=== PATIENT | female | born 1935 | race Two or more races ===

== ENCOUNTER 2019-07-24 13:59 | Emergency (ER) | payer MEDICARE ==
[2019-07-24 14:22] VITALS: BP 104/59
--- NOTE | 2019-07-24 14:47 | UC ---
General HPI - HPI Summary HPI Summary: 84-year-old woman comes in with a chief complaint of low back pain after fall. Earlier today patient was in the bathroom when her son heard her fall. After the fall patient complaint of low back pain. She has pain with ambulation and palpation. Patient reports chronic leg weakness. Denies any abdominal pain. Several days ago she tripped and fell and struck her forehead. She is on the blood thinner L Oquist. She does have a cardiac condition and as a defibrillator in. The family does not believe that it's a pacemaker. No focal weakness or numbness or difficulty with speech or vision noted. Patient denies any headache at this time. Patient has chronic neck pain. No complaint of any neck pain today. No complaint of any other injuries from the fall then the low back pain. - History of Current Complaint Chief Complaint: UCTrauma Stated Complaint: FELL LOWER BACK PAIN Time Seen by Provider: 07/24/19 14:18 Pain Intensity: 7 - Allergy/Home Medications Allergies/Adverse Reactions: Allergies Allergy/AdvReac Type Severity Reaction Status Date / Time No Known Allergies Allergy Verified 07/24/19 14:22 Home Medications: Home Medications Apixaban [Eliquis] 2.5 mg PO DAILY WITH MEAL 07/24/19 [History Confirmed ] Carvedilol [Coreg] 12.5 mg PO DAILY WITH MEAL 07/24/19 [History Confirmed ] Citalopram Hydrobromide [Citalopram HBr] 20 mg PO DAILY WITH MEAL 07/24/19 [ History Confirmed 07/24/19] Digoxin 125 mcg PO DAILY WITH MEAL 07/24/19 [History Confirmed 07/24/19] Docusate Sodium 100 mg PO DAILY WITH MEAL 07/24/19 [History Confirmed 07/24/19] Furosemide 40 mg PO DAILY WITH MEAL 07/24/19 [History Confirmed 07/24/19] Icosapent Ethyl [Vascepa] 1 gm PO DAILY WITH MEAL 07/24/19 [History Confirmed ] Icosapent Ethyl [Vascepa] 2 gm PO BID 07/24/19 [History Confirmed 07/24/19] Ivabradine (NF) [Corlanor (Nf)] 5 mg PO DAILY WITH MEAL 07/24/19 [History Confirmed 07/24/19] Levothyroxine TAB* [Synthroid TAB*] 75 mcg PO DAILY 07/24/19 [History Confirmed 07/24/19] Megestrol TAB* [Megace TAB*] 40 mg PO QID 07/24/19 [History Confirmed 07/24/19] Multivitamin [Multiple Vitamins] 1 tab PO DAILY WITH MEAL 07/24/19 [History Confirmed 07/24/19] Potassium Chlor TAB* [Klor Con ER TAB*] 20 meq PO DAILY 07/24/19 [History Confirmed 07/24/19] Rosuvastatin Calcium 20 mg PO DAILY WITH MEAL 07/24/19 [History Confirmed ] metFORMIN* [Glucophage 500 MG TAB *] 500 mg PO DAILY 07/24/19 [History Confirmed 07/24/19] PMH/Surg Hx/FS Hx/Imm Hx Previously Healthy: Yes - ON ELIQUIS Endocrine History: Diabetes, Hypothyroidism Cardiovascular History: Cardiac Disease, Hypertension, Pacemaker/ICD, Congestive Heart Failure, Atrial Fibrillation - Surgical History Surgical History: Yes - Family History Known Family History: Positive: Non-Contributory - Social History Alcohol Use: Daily Substance Use Type: None Smoking Status (MU): Never Smoked Tobacco Review of Systems All Other Systems Reviewed And Are Negative: Yes Constitutional: Positive: Other - SEE HPI Skin: Positive: Negative Eyes: Positive: Negative ENT: Positive: Negative Respiratory: Positive: Negative Cardiovascular: Positive: Negative Gastrointestinal: Positive: Negative Motor: Positive: Negative Neurovascular: Positive: Negative Musculoskeletal: Positive: Other: - SEE HPI Neurological: Positive: Negative Psychological: Positive: Negative Is Patient Immunocompromised?: No Physical Exam Triage Information Reviewed: Yes Appearance: Well-Appearing, Well-Nourished, Pain Distress - MILD WITH LOW BACK MOVEMENT Vital Signs: Initial Vital Signs Temp 98.3 F 07/24/19 14:12 Pulse 74 07/24/19 14:12 Resp 18 07/24/19 14:12 BP 104/59 07/24/19 14:12 Pulse Ox 95 07/24/19 14:12 Vital Signs Reviewed: Yes Eye Exam: Normal Eyes: Positive: Conjunctiva Clear ENT: Positive: Pharynx normal, TMs normal Neck: Positive: Supple, Nontender Respiratory: Positive: Lungs clear, Normal breath sounds, No respiratory distress Cardiovascular: Positive: Other: - irregularly irregular heart beat Abdomen Description: Positive: Nontender, Soft Musculoskeletal: Positive: Other: - Tender to palpation mid low back and over the sacral area. Neurological: Positive: Alert Psychological: Positive: Age Appropriate Behavior Skin Exam: Normal Diagnostics - EKG Cardiac Rate: NL - AT 1444 Cardiac Rhythm: AFib: Old - 87BPM Ectopy: PVCs Summary of EKG Findings: EKG is 87 beats for minute atrial fibrillation with a PVC and ST depression in V5 and V6. There is no old EKG for comparison. Course/Dx - Course Course Of Treatment: During triage patient's heart rate was 74. However when on the pulse oximeter was reported that it went down into the 30s twice. EKG was 87 beats for minute atrial fibrillation with PVC. There was depressed ST segments in V5 and V6. I do not have an old EKG to compare to. Blood pressure was slightly low although the family does say that her blood pressure often runs low. Given the complexity of the symptoms and an EKG with ST changes that I do not have any comparison for I recommended further evaluation in the emergency department. Family prefers to go by POV. - Diagnoses Provider Diagnosis: Fall, Low back pain, Bradycardia Discharge ED - Sign-Out/Discharge Documenting (check all that apply): Patient Departure All imaging exams completed and their final reports reviewed: No Studies - Discharge Plan Condition: Stable Disposition: HOME-RECOMMEND TO ED Referrals: [facility] [Outside] Additional Instructions: GO DIRECTLY TO THE EMERGENCY DEPARTMENT FOR FURTHER EVALUATION. - Billing Disposition and Condition Condition: STABLE Disposition: Home-Recommend to ED
== END 2019-07-24 15:00 | disposition home health service (06) ==
LOC: UCEAST 13:59
DX: M54.5 Low back pain (principal); R00.1 Bradycardia, unspecified; E11.9 Type 2 diabetes mellitus without complications; E03.9 Hypothyroidism, unspecified; Z79.890 Hormone replacement therapy; Z79.84 Long term (current) use of oral hypoglycemic drugs; Z95.5 Presence of coronary angioplasty implant and graft; Z79.01 Long term (current) use of anticoagulants; W19.XXXA Unspecified fall, initial encounter; Y92.9 Unspecified place or not applicable
CPT/HCPCS: 93005; 99202; G0463

== ENCOUNTER 2019-07-24 15:25 | Observation (INO) | payer MEDICARE ==
--- NOTE | 2019-07-24 16:12 | ED ---
Adult Trauma - HPI Summary HPI Summary: This pt is an 84 y/o female presenting to [facility] referred by [facility] for low back pain after fall yesterday. Son reports yesterday he was helping the patient in the bathroom and helped her brush her teeth. Son stepped out of the bathroom and left the patient by herself to use the toilet. After the son had closed the door he heard a thud and when son went to check the patient she was sitting on the floor with her back towards the door. Patient's son moved the patient forward a little so he can get in to help her up. Per son, patient was sitting on her butt and her feet were flat with her back toward the door. Denies LOC. Pt c/o lower back pain. Son does not know why patient fell. Pt denies any weakness, numbness, headache, chest pain, abd pain. Today pt went to Urgent Care where she was noted to have her heart rate drop to the 30s while on the pulse oximeter. Pt sent by [facility] for further work up. Pt has a defibrillator. Pt is anticoagulated on Eliquis. - History of Current Complaint Chief Complaint: EDBackInjuryPain Stated Complaint: FALL/BACK PAIN PER GRANDSON Time Seen by Provider: 07/24/19 15:49 Hx Obtained From: Patient, Family/Section Crews Activities Clerk - Son Mechanism of Injury: Fall Ambulatory at the Scene: Yes Loss of Consciousness: no loss of consciousness Onset/Duration: Started Days Ago - 1, Still Present Onset of Pain: Days - 1 Current Severity: Moderate Pain Intensity: 5 Pain Scale Used: 0-10 Numeric Location: Back - lower Character: Aching Aggravating Factor(s): Nothing Alleviating Factor(s): Nothing Associated Signs & Symptoms: Negative: Chest Pain, Abdominal Pain, Fever, Loss of Consciousness - Allergy/Home Medications Allergies/Adverse Reactions: Allergies Allergy/AdvReac Type Severity Reaction Status Date / Time No Known Allergies Allergy Verified 07/24/19 14:22 PMH/Surg Hx/FS Hx/Imm Hx Endocrine/Hematology History: Reports: Hx Diabetes, Hx Thyroid Disease Respiratory History: Denies: Hx Asthma GI History: Denies: Hx Ulcer Infectious Disease History: No Infectious Disease History: Denies: Hx Human Immunodeficiency Virus (HIV), Traveled Outside the [place] in Last 30 Days - Family History Known Family History: Positive: Non-Contributory - Social History Alcohol Use: Daily Substance Use Type: Reports: None Smoking Status (MU): Never Smoked Tobacco Review of Systems Negative: Fever Cardiovascular: Other - POSITIVE: arrhythmia Negative: Chest Pain Negative: Abdominal Pain Musculoskeletal: Other - POSITIVE: lower back pain Neurological: Other - NEGATIVE: LOC Negative: Headache, Weakness, Numbness All Other Systems Reviewed And Are Negative: Yes Physical Exam - Summary Physical Exam Summary: Appearance: The patient is well-nourished in no acute distress and in no acute pain. Skin: The skin is warm and dry and skin color reflects adequate perfusion. HEENT: The head is normocephalic and atraumatic. The pupils are equal and reactive. The conjunctivae are clear and without drainage. Nares are patent and without drainage. Mouth reveals moist mucous membranes and the throat is without erythema and exudate. The external ears are intact. The ear canals are patent and without drainage. The tympanic membranes are intact. Neck: the neck is supple with full range of motion and non-tender. There are no carotid bruits. There is no neck vein distension. Respiratory: Chest is non-tender. Lungs are clear to auscultation and breath sounds are symmetrical and equal. Cardiovascular: Heart is regular rate and rhythm. There is no murmur or rub auscultated. There is no peripheral edema and pulses are symmetrical and equal. Abdomen: The abdomen is soft and non-tender. There are normal bowel sounds heard in all four quadrants and there is no organomegaly palpated. Musculoskeletal: There is no back tenderness noted. Extremities are non-tender with full range of motion. There is good capillary refill. There is no peripheral edema or calf tenderness elicited. Neurological: Patient is alert and oriented to person, place and time. The patient has symmetrical motor strength in all four extremities. Psychiatric: The patient has an appropriate affect and does not exhibit any anxiety or depression. Triage Information Reviewed: Yes Vital Signs On Initial Exam: Initial Vitals Temp Pulse Resp BP Pulse Ox 98.6 F 91 18 119/62 98 07/24/19 15:26 07/24/19 15:26 07/24/19 15:26 07/24/19 15:26 07/24/19 15:26 Vital Signs Reviewed: Yes Procedures - Sedation Patient Received Moderate/Deep Sedation with Procedure: No Diagnostics - Vital Signs Vital Signs Temp Pulse Resp BP Pulse Ox 07/24/19 15:26 98.6 F 91 18 119/62 98 - Laboratory Result Diagrams: 07/24/19 16:23 07/24/19 16:23 Lab Statement: Any lab studies that have been ordered have been reviewed, and results considered in the medical decision making process. - CT Lumbar spine CT CT Interpretation Completed By: Radiologist Summary of CT Findings: IMPRESSION: 1. Acute to subacute compression fractures of the superior endplates of the L1 and L4 vertebral bodies with mild retropulsion of fracture fragments into the anterior spinal canal. 2. Severe degenerative disc disease and facet osteoarthritis with changes most prominent at the L3-L4 and L4-L5 levels as described above. Dr. Abraham has reviewed this report. - EKG 16:37 Cardiac Rate: NL - at 78 bpm EKG Rhythm: Atrial Fibrillation Summary of EKG Findings: EKG at 1637 shows afib at a rate of 78 bpm. Adult Trauma Course/Dx - Course Course Of Treatment: Unable to successfully interrogated her device. She was found on CT scan to have new compression fractures with minimal retropulsion. She was kept on the monitor while she was here and did have a short run of V. tach. I spoke with the hospitalist Dr. Galvez who will admit the patient for monitoring and further evaluation. - Diagnoses Provider Diagnoses: V-tach, Compression fracture, Syncope - Physician Notifications Discussed Care Of Patient With: Aye Santo Time Discussed With Above Provider: 19:21 Instructed by Provider To: Other - Discussed case with Dr. Santo, lath tier. [2010] Discussed pt care with Dr. Galvez, hospitalist, who accepted the pt for admission. - Critical Care Time Critical Care Time: 30-74 min Discharge ED - Sign-Out/Discharge Documenting (check all that apply): Patient Departure - Admit to [facility] - Discharge Plan Condition: Stable Disposition: ADMITTED TO [facility] Referrals: [facility] [Outside] - Billing Disposition and Condition Condition: STABLE Disposition: Admitted to [facility] - Attestation Statements Document Initiated by Scribe: Yes Documenting Scribe: Elzbieta Burch Provider For Whom Scribe is Documenting (Include Credential): Kal Abraham MD Scribe Attestation: Elzbieta Wilkerson, scribed for Kal Abraham MD on 07/24/19 at 2135. Scribe Documentation Reviewed: Yes Provider Attestation: The documentation as recorded by the scribe, Elzbieta Burch accurately reflects the service I personally performed and the decisions made by me, Kal Abraham MD Status of Scribe Document: Viewed
[2019-07-24 16:37] LABS: ABS Lymphocytes 0.9 10^3/ul (1.0-4.8); ABS Monocytes 0.6 10^3/ul (0-0.8); ABS Neutrophils 7.4 10^3/ul (1.5-7.7); Eosinophil % 0.4 %; Hematocrit 34 % (35-47); Hemoglobin 11.9 g/dL (12.0-16.0); Lymphocyte % 10.5 %; Mean Corpuscular HGB Conc 35 g/dL (31-36); Mean Corpuscular Hemoglobin 35 pg (27-31); Mean Corpuscular Volume 100 fL (80-97); Mean Platelet Volume 8.4 fL (7.4-10.4); Platelet Count 158 10^3/uL (150-450); Red Blood Count 3.45 10^6 /uL (3.70-4.87); Red Cell Distribution Width 15 % (10-15); White Blood Count 9.1 10^3/uL (3.5-10.8)
[2019-07-24 16:48] LABS: INR 1.69 (0.82-1.09)
[2019-07-24 16:54] LABS: ALT 18 U/L (7-52); AST 21 U/L (13-39); Albumin 4.3 g/dL (3.2-5.2); Albumin/Globulin Ratio 1.3 (1-3); Alkaline Phosphatase 56 U/L (34-104); Anion Gap 10 mmol/L (2-11); BUN/Creatinine Ratio 18.4 (8-20); Blood Urea Nitrogen 14 mg/dL (6-24); CO2 Carbon Dioxide 29 mmol/L (22-32); Calcium 10.4 mg/dL (8.6-10.3); Chloride 95 mmol/L (101-111); EGFR African American 87.5 (>60); EGFR Non-African American 72.3 (>60); Globulin 3.3 g/dL (2-4); Glucose 202 mg/dL (70-100); Magnesium 1.6 mg/dL (1.9-2.7); Potassium 3.6 mmol/L (3.5-5.0); Sodium 134 mmol/L (135-145); Total Protein 7.6 g/dL (6.4-8.9)
[2019-07-24 16:57] LABS: Troponin I 0.01 ng/mL (<0.03)
[2019-07-24 17:10] LABS: TSH (Thyroid Stimulating Horm) 2.13 mcIU/mL (0.34-5.60)
[2019-07-24] MEDS ORDERED: NS 0.9% 1000 ML** 1,000 ML IV ONE (18:55)
[2019-07-24 19:11] LABS: Urine Appearance Clear; Urine Bilirubin Negative (Negative); Urine Blood 1+ (Negative); Urine Color Yellow; Urine Glucose Negative (Negative); Urine Ketones Negative (Negative); Urine Nitrite Negative (Negative); Urine Protein Negative (Negative); Urine Specific Gravity 1.011 (1.010-1.030); Urine Urobilinogen Negative (Negative)
[2019-07-24 19:12] LABS: Urine Bacteria Absent (Absent); Urine Red Blood Cell Trace(0-2/hpf) (Absent); Urine Squamous Epithelial Cell Present (Absent); Urine White Blood Cell Trace(0-5/hpf) (Absent)
[2019-07-24] MEDS ORDERED: Magnesium Sulfate IV* 3 GM in NS 0.9% 100 ML* 100 ML IVPB ONE (20:11)
[2019-07-24] MEDS ORDERED: NS 0.9% 100 ML* 100 ML ONE (20:20)
[2019-07-24] MEDS ORDERED: Ondansetron ODT TAB* 4 MG PO ONE (21:44)
[2019-07-24] MEDS ORDERED: Meclizine TAB* 12.5 MG PO ONE (21:44)
[2019-07-24] MEDS ORDERED: Furosemide TAB* 40 MG PO SCH (22:00)
[2019-07-24 22:10] LABS: Cholesterol 132 mg/dL; HDL Cholesterol 45.3 mg/dL; LDL Cholesterol 35 mg/dL; Triglycerides 257 mg/dL
[2019-07-24 22:11] LABS: % Iron Saturation 19 % (15-55); Iron 72 ug/dL (50-212); Total Iron Binding Capacity 374 mcg/dL (250-450); Transferrin 267 mg/dL (203-362)
[2019-07-24] MEDS ORDERED: Potassium Chlor TAB* 20 MEQ TAB.ER PO ONE (22:18)
[2019-07-24 22:32] LABS: Ferritin 62.4 ng/mL (11-307)
[2019-07-24] MEDS: Carvedilol TAB* 6.25 MG PO SCH (23:38)
[2019-07-24] MEDS: Apixaban* 2.5 MG TAB PO SCH (23:38)
[2019-07-24] MEDS: Atorvastatin* 40 MG TAB PO SCH (23:40)
[2019-07-24] MEDS: Ivabradine (NF) 5 MG TABLET PO SCH (23:48)
[2019-07-25] MEDS ORDERED: Dextrose 50% VIAL 50 ml IV PUSH PRN (00:31)
--- NOTE | 2019-07-25 00:33 | HP ---
HISTORY AND PHYSICAL: DATE OF ADMISSION: 07/24/19 ADMITTING PROVIDER: Sedrick Galvez MD PRIMARY CARE PROVIDER: Dr. Kacie Olvera. OUTPATIENT INDUSTRIAL HYGIENIST: Dr. Gallo [phone] [facility]. CHIEF COMPLAINT: Back pain after a fall, referred for bradycardia. HISTORY OF PRESENT ILLNESS: Mar Rascon is an 84-year-old female with past medical history of what sounds like nonischemic cardiomyopathy with EF improved to reportedly 50% from 25% a few years ago; atrial fibrillation, on Eliquis; hypertension; dementia. She was visiting her son in [place], she is a resident of [facility] in [facility]. On the morning prior to admission, she was in the bathroom and fell landing on her buttocks with her back up against the wall. She is a poor historian and has had a inconsistent history of what happened to her family, but at one point of time, she told her son that she felt like things went dark prior to the fall, later she would say that it happened after. Her son, Pete is in the room and thought that she did not lose consciousness when he opened the door after he heard the thud. She had a 7-8/10 back pain throughout the day, treated with Advil and they sought medical attention at urgent care on the morning of admission. She was noted to have episodes on the pulse oximetry of bradycardias to the 30s and therefore without the access to telemetry, she was referred to [facility]. While on telemetry, she had a 12-beat run of V- tach in the emergency room. The patient had a 10-beat run of V-tach at 20:02 and was referred to the hospitalist service for admission after emergency room doctor talked to team coordinator on-call. Initial workup has included a lumbar spine CT, which demonstrated acute to subacute L1 and L4 compression fractures of the superior end plates with some mild retropulsion of fracture fragments into the anterior spinal canal and severe degenerative disk disease and facet osteoarthritis with changes most prominent at L3-L4 and L4-L5. The patient is a Malay and Indonesian speaker. The medical surrogate, Pete, who is her son, who is at bedside, is translating. She does not know the year at baseline given dementia. She is without complaint. Other than the back pain, she denies any chest pain , shortness of breath, or palpitations. There was an attempt to interrogate the AICD through both [facility] and [facility], but this was successful. She was seen by Dr. Jensen, who placed the AICD or defibrillator about 10 to 12 years ago. She saw him about 3 months ago and thought that the device was working well. She last saw Dr. Gallo 1 month ago and has followup in mid August. PAST MEDICAL HISTORY: What sounds like nonischemic cardiomyopathy and chronic systolic congestive heart failure with last EF approximately 50%, improved from 25%; atrial fibrillation, on Eliquis; hypertension; dementia; diabetes mellitus , non-insulin dependent. MEDICATIONS: Include: 1. Lasix 40 mg p.o. b.i.d. at 0600 and 1100 approximately. 2. Coreg 12.5 mg p.o. b.i.d. 3. Eliquis 2.5 mg p.o. b.i.d. 4. Ivabradine 5 mg p.o. b.i.d. 5. Crestor 20 mg daily. 6. Potassium chloride 20 mEq p.o. b.i.d. 7. Metformin 500 mg daily. 8. Multivitamin 1 tab p.o. daily. 9. Megace 40 mg p.o. four times a day (have not confirmed this frequency yet). 10. Levothyroxine 75 mcg p.o. daily. 11. Vascepa 2 g p.o. b.i.d. 12. Docusate 100 mg p.o. daily. 13. Digoxin 125 mcg p.o. daily. 14. Celexa 20 mg p.o. daily. ALLERGIES: No known drug allergies. FAMILY HISTORY: Father at age 56 of [place]. She has 3 brothers, all of what sounds like congestive heart failure at ages 82, 79, and between 68 and 70. She has 1 sister, who of pancreatic cancer at age 82 and then another sister of age 62 of unknown causes. She had a half brother, who in his 50s, unclear cause. SOCIAL HISTORY: The patient is a never smoker. She is retired floor assembler. She drinks 1 to 2 glasses of wine each day with dinner, has never been heavier drinker than that. No illicit substances history. Medical surrogate is her son , Pete at [phone], other son, Hero, , or the , Uriel. REVIEW OF SYSTEMS: Complete 14-point review of systems is negative except as per HPI. She specifically denies any fevers, chills, nausea, vomiting, diarrhea , constipation, abdominal pain, chest pain, short of breath, coughing, rash, headaches. She does have lower back pain ever since the fall. She is pleasantly demented at baseline. Does not usually know the year, but knows her name. She follows commands. PHYSICAL EXAMINATION GENERAL APPEARANCE: No acute distress. VITAL SIGNS: Temperature 98.6; heart rate between 75 and 107; respiratory rate between 18 and 32; satting 91% to 100% on room air; blood pressure initially 119 /62, currently 148/84. HEENT: Normocephalic, atraumatic. Pupils are equal, round, and reactive to light. Extraocular motions are intact. No scleral icterus. LUNGS: Clear to auscultation bilaterally with no wheezing, rales, or rhonchi. CARDIOVASCULAR: Irregularly irregular. There is a 2/6 systolic ejection murmur across the precordium. No rubs or gallops. ABDOMEN: Soft, nontender, nondistended. No rebound or guarding. EXTREMITIES: Warm and well perfused. No peripheral edema. NEUROLOGIC: Cranial nerves grossly intact. Marketing Designer strength intact bilaterally. Hip flexion intact bilaterally. Sensation intact. SKIN: No lesions. No rashes. DIAGNOSTIC STUDIES/LAB DATA: White count 9.1, hemoglobin 11.9, hematocrit 34, platelets 158. INR 1.69. Sodium 134, potassium 3.6, chloride 95, carbon dioxide 29. BUN 14, creatinine 0.76. Glucose 202, lactic acid 2.5, calcium 10.4, magnesium 1.6. Total bilirubin 1.20, AST 21, ALT 18, alk phos 56. Troponin 0.01. TSH 2.13. Urinalysis: 1+ blood, trace leukocyte esterase, squamous epithelial cells present. Imaging: Lumbar spine CT demonstrated: 1. Acute to subacute compression fractures of the superior end plates of the L1 and L4 vertebral bodies with mild retropulsion of fracture fragments into the anterior spinal canal. 2. Severe degenerative disk disease and facet osteoarthritis with changes most prominent at the L3-L4 and L4-L5 levels as described above. Specifically, there is a moderate broad-based disk bulge associated with posterior end plates spurring and facet osteoarthritis of the L3-L4 giving rise to moderate-to- severe spinal canal narrowing and moderate bilateral neural foraminal narrowing and there is end plate spurring associated with broad-based disk bulge and hypertrophic changes within the facet joints, which comprised of severe spinal canal narrowing at L4-L5 with mild neural foraminal narrowing on the right side and severe neural foraminal narrowing on the left side. EKG from 14:44 at Urgent Care demonstrated atrial fibrillation, PVC, heart rate 87, slight nondiagnostic ST depressions in the V5 and V6. Repeat EKG at 16:37 unchanged except no PVC, QTc was 511, heart rate was 78. ASSESSMENT AND PLAN: 1. Mar Rascon is an 84-year-old female with past medical history of recovering severe systolic congestive heart failure, presumably nonischemic with last EF reportedly about 50%; atrial fibrillation, on Eliquis; hypertension ; non- insulin dependent diabetes mellitus; dementia; who had a fall with possible syncope prior to the fall the day prior to admission. History is unclear. She has had episode of bradycardia at Urgent Care and 10-beat run of ventricular tachycardia in the emergency room. Emergency room provider was contacted. Dr. Santo has recommended observation overnight on telemetry until the pacemaker, which has been attempted to be interrogated by [facility] and [facility] without success, can be fully interrogated. She is otherwise without complaint other than the lower back pain. We will try to get more information about the pacemaker/AICD device once Dr. Gallo's office is open in the morning, also follows up with Dr. Jensen, who placed the device, to see if this is potentially MRI compatible to determine that the compression fractures need further workup. She is a visitor here and could consider followup as an outpatient back home in [facility]. We will get physical therapy to work with her to see if she is ambulatory. She has been using a walker since the fall and possibly before the fall. 2. Possible syncope with episode of ventricular tachycardia. Her electrolytes need replacing. Magnesium was 1.6, we have given her 3 g here, repeat daily. Potassium is 3.6. She is on b.i.d. supplementation, b.i.d. Lasix, replete that above 4, magnesium above 2. I am adding on A1c and lipid panel. 3. She is slightly anemic with macrocytosis. I will add on iron panel, ferritin, and iron sat. We can request her records of PCP, Dr. Kacie Olvera in the morning. She denies any recent blood in bowel movements. 4. For her chronic systolic nonischemic congestive heart failure, continue ivabradine 5 mg p.o. b.i.d., carvedilol 12.5 mg p.o. b.i.d., Lasix 40 mg at 0600 and 1100. She is relatively euvolemic. I am going to add on a BNP. If any evidence of hypoxia, which she has not had, we will get a chest x-ray. We will request the echocardiogram records from the outpatient team coordinator in the morning. 5. Lactic acidosis 2.5. She is without any fevers, leukocytosis, tachycardia. She has had intermittent tachypnea, but looks stable from a respiratory standpoint when I was in the room. It could be secondary to the metformin, which will be held during admission. She is status post 1 L of fluids in the emergency room. Repeat the lactic acid now. It was elevated in the morning. UA without evidence of infection. 6. DVT prophylaxis and paroxysmal atrial fibrillation. We will continue Eliquis 2.5 mg p.o. b.i.d. Continue the carvedilol 12.5 mg p.o. b.i.d. Continue telemetry and electrolytes repletion as above. We will add on digoxin level in the morning. Continue digoxin at home dose for now 0.125 mg p.o. daily. She is a full code. Medical surrogate is her son, Pete; son, Hero; and then , Uriel. She can eat a heart-healthy diet. 7. Hyperlipidemia. Continue her Crestor 20 mg daily. 8. For hypothyroidism, continue levothyroxine 75 mcg daily. Her TSH was within normal limits. [id number] #: [id number] #: [id number] MABLE
--- NOTE | 2019-07-25 00:50 | HP ---
HISTORY AND PHYSICAL: ADDENDUM: DATE OF ADMISSION: 07/24/19 The patient had a 10-beat run of V-tach at 20:02 and was referred to the hospitalist service for admission after emergency room doctor talked to civil engineering assistant on-call. Initial workup has included a lumbar spine CT, which demonstrated acute to subacute L1 and L4 compression fractures of the superior end plates with some mild retropulsion of fracture fragments into the anterior spinal canal and severe degenerative disk disease and facet osteoarthritis with changes most prominent at L3-L4 and L4-L5. The patient is a Guatemalan and Romanian speaker. The medical surrogate, Pete, who is her son, who is at bedside, is translating. She does not know the year at baseline given dementia. She is without complaint. Other than the back pain, she denies any chest pain , shortness of breath, or palpitations. There was an attempt to interrogate the AICD through both [facility] and [facility], but this was successful. She was seen by Dr. Jensen, who placed the AICD or defibrillator about 10 to 12 years ago. She saw him about 3 months ago and thought that the device was working well. She last saw Dr. Gallo 1 month ago and has followup in mid August. PAST MEDICAL HISTORY: What sounds like nonischemic cardiomyopathy and chronic systolic congestive heart failure with last EF approximately 50%, improved from 25%; atrial fibrillation, on Eliquis; hypertension; dementia; diabetes mellitus , non-insulin dependent. MEDICATIONS: Include: 1. Lasix 40 mg p.o. b.i.d. at 0600 and 1100 approximately. 2. Coreg 12.5 mg p.o. b.i.d. 3. Eliquis 2.5 mg p.o. b.i.d. 4. Ivabradine 5 mg p.o. b.i.d. 5. Crestor 20 mg daily. 6. Potassium chloride 20 mEq p.o. b.i.d. 7. Metformin 500 mg daily. 8. Multivitamin 1 tab p.o. daily. 9. Megace 40 mg p.o. four times a day (have not confirmed this frequency yet). 10. Levothyroxine 75 mcg p.o. daily. 11. Vascepa 2 g p.o. b.i.d. 12. Docusate 100 mg p.o. daily. 13. Digoxin 125 mcg p.o. daily. 14. Celexa 20 mg p.o. daily. ALLERGIES: No known drug allergies. FAMILY HISTORY: Father at age 56 of [place]. She has 3 brothers, all of what sounds like congestive heart failure at ages 82, 79, and between 68 and 70. She has 1 sister, who of pancreatic cancer at age 82 and then another sister of age 62 of unknown causes. She had a half brother, who in his 50s, unclear cause. SOCIAL HISTORY: The patient is a never smoker. She is retired floors buffer. She drinks 1 to 2 glasses of wine each day with dinner, has never been heavier drinker than that. No illicit substances history. Medical surrogate is her son , Pete, at [phone], other son, Hero, , or the , Uriel. REVIEW OF SYSTEMS: Complete 14-point review of systems is negative except as per HPI. She specifically denies any fevers, chills, nausea, vomiting, diarrhea , constipation, abdominal pain, chest pain, short of breath, coughing, rash, headaches. She does have lower back pain ever since the fall. She is pleasantly demented at baseline. Does not usually know the year, but knows her name. She follows commands. PHYSICAL EXAMINATION GENERAL APPEARANCE: No acute distress. VITAL SIGNS: Temperature 98.6; heart rate between 75 and 107; respiratory rate between 18 and 32; satting 91% to 100% on room air; blood pressure initially 119 /62, currently 148/84. HEENT: Normocephalic, atraumatic. Pupils are equal, round, and reactive to light. Extraocular motions are intact. No scleral icterus. LUNGS: Clear to auscultation bilaterally with no wheezing, rales, or rhonchi. CARDIOVASCULAR: Irregularly irregular. There is a 2/6 systolic ejection murmur across the precordium. No rubs or gallops. ABDOMEN: Soft, nontender, nondistended. No rebound or guarding. EXTREMITIES: Warm and well perfused. No peripheral edema. NEUROLOGIC: Cranial nerves grossly intact. Damper Worker strength intact bilaterally. Hip flexion intact bilaterally. Sensation intact. SKIN: No lesions. No rashes. DIAGNOSTIC STUDIES/LAB DATA: White count 9.1, hemoglobin 11.9, hematocrit 34, platelets 158. INR 1.69. Sodium 134, potassium 3.6, chloride 95, carbon dioxide 29. BUN 14, creatinine 0.76. Glucose 202, lactic acid 2.5, calcium 10.4, magnesium 1.6. Total bilirubin 1.20, AST 21, ALT 18, alk phos 56. Troponin 0.01. TSH 2.13. Urinalysis: 1+ blood, trace leukocyte esterase, squamous epithelial cells present. Imaging: Lumbar spine CT demonstrated: 1. Acute to subacute compression fractures of the superior end plates of the L1 and L4 vertebral bodies with mild retropulsion of fracture fragments into the anterior spinal canal. 2. Severe degenerative disk disease and facet osteoarthritis with changes most prominent at the L3-L4 and L4-L5 levels as described above. Specifically, there is a moderate broad-based disk bulge associated with posterior end plates spurring and facet osteoarthritis of the L3-L4 giving rise to moderate-to- severe spinal canal narrowing and moderate bilateral neural foraminal narrowing and there is end plate spurring associated with broad-based disk bulge and hypertrophic changes within the facet joints, which comprised of severe spinal canal narrowing at L4-L5 with mild neural foraminal narrowing on the right side and severe neural foraminal narrowing on the left side. EKG from 14:44 at Urgent Care demonstrated atrial fibrillation, PVC, heart rate 87, slight nondiagnostic ST depressions in the V5 and V6. Repeat EKG at 16:37 unchanged except no PVC, QTc was 511, heart rate was 78. ASSESSMENT AND PLAN: 1. Mar Rascon is an 84-year-old female with past medical history of recovering severe systolic congestive heart failure, presumably nonischemic with last EF reportedly about 50%; atrial fibrillation, on Eliquis; hypertension ; non- insulin dependent diabetes mellitus; dementia; who had a fall with possible syncope prior to the fall the day prior to admission. History is unclear. She has had episode of bradycardia at Urgent Care and 10-beat run of ventricular tachycardia in the emergency room. Emergency room provider was contacted. Dr. Santo has recommended observation overnight on telemetry until the pacemaker, which has been attempted to be interrogated by [facility] and [facility] without success, can be fully interrogated. She is otherwise without complaint other than the lower back pain. We will try to get more information about the pacemaker/AICD device once Dr. Gallo's office is open in the morning, also follows up with Dr. Jensen, who placed the device, to see if this is potentially MRI compatible to determine that the compression fractures need further workup. She is a visitor here and could consider followup as an outpatient back home in [facility]. We will get physical therapy to work with her to see if she is ambulatory. She has been using a walker since the fall and possibly before the fall. 2. Possible syncope with episode of ventricular tachycardia. Her electrolytes need replacing. Magnesium was 1.6, we have given her 3 g here, repeat daily. Potassium is 3.6. She is on b.i.d. supplementation, b.i.d. Lasix, replete that above 4, magnesium above 2. I am adding on A1c and lipid panel. 3. She is slightly anemic with macrocytosis. I will add on iron panel, ferritin, and iron sat. We can request her records of PCP, Dr. Kacie Olvera in the morning. She denies any recent blood in bowel movements. 4. For her chronic systolic nonischemic congestive heart failure, continue ivabradine 5 mg p.o. b.i.d., carvedilol 12.5 mg p.o. b.i.d., Lasix 40 mg at 0600 and 1100. She is relatively euvolemic. I am going to add on a BNP. If any evidence of hypoxia, which she has not had, we will get a chest x-ray. We will request the echocardiogram records from the outpatient civil engineering assistant in the morning. 5. Lactic acidosis 2.5. She is without any fevers, leukocytosis, tachycardia. She has had intermittent tachypnea, but looks stable from a respiratory standpoint when I was in the room. It could be secondary to the metformin, which will be held during admission. She is status post 1 L of fluids in the emergency room. Repeat the lactic acid now. It was elevated in the morning. UA without evidence of infection. 6. DVT prophylaxis and paroxysmal atrial fibrillation. We will continue Eliquis 2.5 mg p.o. b.i.d. Continue the carvedilol 12.5 mg p.o. b.i.d. Continue telemetry and electrolytes repletion as above. We will add on digoxin level in the morning. Continue digoxin at home dose for now 0.125 mg p.o. daily. She is a full code. Medical surrogate is her son, Pete; son, Hero; and then , Uriel. She can eat a heart-healthy diet. 7. Hyperlipidemia. Continue her Crestor 20 mg daily. 8. For hypothyroidism, continue levothyroxine 75 mcg daily. Her TSH was within normal limits. [id number]/[facility] #: [id number] [facility]
[2019-07-25] MEDS: Levothyroxine TAB* 75 MCG TAB PO SCH (05:08)
[2019-07-25] MEDS ORDERED: Furosemide TAB* 40 MG PO SCH (06:00)
[2019-07-25 06:05] LABS: ABS Lymphocytes 0.9 10^3/ul (1.0-4.8); ABS Monocytes 0.6 10^3/ul (0-0.8); ABS Neutrophils 7.7 10^3/ul (1.5-7.7); Eosinophil % 0.3 %; Hematocrit 32 % (35-47); Hemoglobin 11.2 g/dL (12.0-16.0); Mean Corpuscular HGB Conc 34 g/dL (31-36); Mean Corpuscular Hemoglobin 35 pg (27-31); Mean Corpuscular Volume 101 fL (80-97); Mean Platelet Volume 8.1 fL (7.4-10.4); Nucleated Red Blood Cells % 0.1; Platelet Count 140 10^3/uL (150-450); Red Blood Count 3.21 10^6 /uL (3.70-4.87); Red Cell Distribution Width 15 % (10-15); White Blood Count 9.3 10^3/uL (3.5-10.8)
[2019-07-25 06:20] LABS: BUN/Creatinine Ratio 18.5 (8-20); Calcium 9.5 mg/dL (8.6-10.3); EGFR African American 81.3 (>60); EGFR Non-African American 67.2 (>60); Magnesium 2.2 mg/dL (1.9-2.7); Potassium 4.5 mmol/L (3.5-5.0)
[2019-07-25 06:58] LABS: Digoxin 0.8 ng/ml (0.8-2.0)
[2019-07-25] MEDS: Docusate CAP* 100 MG PO SCH ×2 (08:29→08:37)
[2019-07-25] MEDS: Carvedilol TAB* 6.25 MG PO SCH ×2 (08:29→20:13)
[2019-07-25] MEDS: Apixaban* 2.5 MG TAB PO SCH ×2 (08:29→20:13)
[2019-07-25] MEDS: Insulin LISPRO* 1 UNITS UNIT SUBCUT SCH ×4 (08:29→21:57)
[2019-07-25] MEDS: Digoxin TAB* 0.125 MG PO SCH (08:29)
[2019-07-25] MEDS ORDERED: Citalopram TAB* 20 MG PO SCH (08:30)
[2019-07-25] MEDS ORDERED: Apixaban* 2.5 MG TAB PO SCH (08:30)
[2019-07-25] MEDS: Ivabradine (NF) 5 MG TABLET PO SCH ×2 (08:36→21:57)
[2019-07-25] MEDS ORDERED: traMADol TAB* 50 MG PO PRN (10:00)
[2019-07-25] MEDS: Acetaminophen TAB* 325 MG PO SCH ×3 (10:48→20:14)
[2019-07-25] MEDS: Furosemide TAB* 40 MG PO SCH (10:49)
[2019-07-25] MEDS: Atorvastatin* 40 MG TAB PO SCH (17:20)
--- NOTE | 2019-07-25 19:32 | PN ---
Subjective Date of Service: 07/25/19 Interval History: Patient was seen sitting up in bed. Frequently winced and shifted positions, stated that she had pain going across her lower back. Able to dorsi/plantar flex. Sensation intact to bilateral lower extremities. Unable to answer/ comprehend questions clearly due to dementia/language barrier. Denied dizziness , lightheadedness, chest pain, shortness of breath, abdominal pain, nausea, vomiting. Family History: Unchanged from Admission Social History: Unchanged from Admission Past Medical History: Unchanged from Admission Objective Active Medications: Acetaminophen (Tylenol Tab*) 975 mg PO TID [facility] Last Admin: 07/25/19 14:21 Dose: 975 mg Apixaban (Eliquis*) 2.5 mg PO BID [facility] Last Admin: 07/25/19 08:29 Dose: 2.5 mg Atorvastatin Calcium (Lipitor*) 40 mg PO 1700 [facility] Last Admin: 07/25/19 17:20 Dose: Not Given Carvedilol (Coreg Tab*) 12.5 mg PO BID [facility] Last Admin: 07/25/19 08:29 Dose: 12.5 mg Dextrose (Dextrose 50% Vial 50 Ml*) 25 ml IV PUSH .FOR FS < 60 - SS PRN PRN Reason: FS < 60 Digoxin (Lanoxin Tab*) 0.125 mg PO DAILY WITH MEAL [facility] Last Admin: 07/25/19 08:29 Dose: 0.125 mg Docusate Sodium (Colace Cap*) 100 mg PO DAILY WITH MEAL [facility] Last Admin: 07/25/19 08:37 Dose: Not Given Furosemide (Lasix Tab*) 40 mg PO 0600,1100 [facility] Last Admin: 07/25/19 10:49 Dose: 40 mg Insulin Human Lispro (Humalog*) 0 units SUBCUT ACHS [facility]; Protocol Last Admin: 07/25/19 17:18 Dose: 2 units Ivabradine (Corlanor (Nf)) 5 mg PO BID [facility] Last Admin: 07/25/19 08:36 Dose: Not Given Levothyroxine Sodium (Synthroid Tab*) 75 mcg PO DAILY@0600 [facility] Last Admin: 07/25/19 05:08 Dose: 75 mcg Tramadol HCl (Ultram*) 50 mg PO Q6H PRN PRN Reason: PAIN - MODERATE Vital Signs - 8 hr 07/25/19 15:15 Temperature 97.2 F Pulse Rate 78 Respiratory 16 Rate Blood Pressure 104/45 (mmHg) O2 Sat by Pulse 95 Oximetry Oxygen Devices in Use Now: None Appearance: This is a well developed older woman seen sitting up in bed, mildly distressed with movement. Eyes: No Scleral Icterus, PERRLA Ears/Nose/Mouth/Throat: NL Teeth, Lips, Gums, Clear Oropharnyx, Mucous Membranes Moist Neck: NL Appearance and Movements; NL JVP, Trachea Midline Respiratory: Symmetrical Chest Expansion and Respiratory Effort, Clear to Auscultation Cardiovascular: NL Sounds; No Murmurs; No JVD, No Edema, - - Heart rate irregular, in AFIB. Interrogation of pacer revealed 3 episodes of debrillation within the past few months as well as a number of episodes of v-tach, including at the time of her fall. Abdominal: NL Sounds; No Tenderness; No Distention Lymphatic: No Cervical Adenopathy Extremities: No Edema, No Clubbing, Cyanosis Skin: No Rash or Ulcers, No Nodules or Sclerosis Neurological: Alert and Oriented x 3 Lines/Tubes/Other Access: Clean, Dry and Intact Peripheral IV Nutrition: Taking PO's Result Diagrams: 07/25/19 05:55 07/25/19 05:55 Assess/Plan/Problems-Billing Assessment: This is a 84 year old female with a past medical history of dementia and nonischemic cardiomyopathy who was admitted 07/24/19 for fall due to syncope, resulting in lumbar compression fractures. - Patient Problems (1) Lumbar compression fracture Current Visit: Yes Status: Acute Code(s): S32.000A - WEDGE COMPRESSION FRACTURE OF UNSP LUMBAR VERTEBRA, INIT SNOMED Code(s): 252461324 Comment: -Result of her recent fall most likely. Showes L1-L4 compression fractures with fracture fragments into the anterior spinal canal. Since there is no neurosurgery learning operations specialist, obtained advice from Dr. South in [facility]. Suggested that we apply a TLSO brace. Gormania that though there was a risk of furthe rinjury in a long car ride, it would be OK to be transported by her family back home with her brace in place. Senior Mechanical Design Engineer notified who will fit patient for brace tonight. Obtain thoracic/lunbar xrays with brace on to assess fracture fragments. -Pain control with tylenol and tramadol. (2) Ventricular tachycardia Current Visit: Yes Status: Acute Code(s): I47.2 - VENTRICULAR TACHYCARDIA SNOMED Code(s): 48631832 Comment: -Pacer interogated. Showed three separate instances of defibrillation and multiple episodes of v-tach including at the time of her fall. Family is not interested in any interventions in [place] as she is [place]. They have made an appointment for her to follow up with her shipyard painter in a few days. (3) Nonischemic cardiomyopathy Current Visit: Yes Status: Acute Code(s): I42.8 - OTHER CARDIOMYOPATHIES SNOMED Code(s): 99122922 Comment: -No chest pain or signs of ACS. Continue digoxin, corlanor and carvidolol. (4) Afib Current Visit: Yes Status: Acute Code(s): I48.91 - UNSPECIFIED ATRIAL FIBRILLATION SNOMED Code(s): 66880522 Comment: -AICD in place. Continue digoxin, not on anticoagulation. (5) Diabetes type 2, controlled Current Visit: Yes Status: Acute Code(s): E11.9 - TYPE 2 DIABETES MELLITUS WITHOUT COMPLICATIONS SNOMED Code(s): 12989369 Comment: -Not on medication. Hbg A1C 6.7%, patient is at target. (6) Lactic acid acidosis Current Visit: Yes Status: Acute Code(s): E87.2 - ACIDOSIS SNOMED Code(s) : 26641222 Comment: -Resolved. (7) Hyperlipemia Current Visit: Yes Status: Acute Code(s): E78.5 - HYPERLIPIDEMIA, UNSPECIFIED SNOMED Code(s): 93036046 Comment: -Continue atorvastatin. Status and Disposition: Condition: fair Disposition: Admit obv to 4S with tele Attending: Bre Malik
[2019-07-25] MEDS: IVABRADINE 5 MG PO SCH (21:57)
[2019-07-26] MEDS: Furosemide TAB* 40 MG PO SCH ×2 (06:18→12:29)
[2019-07-26] MEDS: Levothyroxine TAB* 75 MCG TAB PO SCH (06:18)
[2019-07-26] MEDS: Insulin LISPRO* 1 UNITS UNIT SUBCUT SCH ×2 (10:17→12:27)
[2019-07-26] MEDS: Apixaban* 2.5 MG TAB PO SCH (10:20)
[2019-07-26] MEDS: Acetaminophen TAB* 325 MG PO SCH (10:20)
[2019-07-26] MEDS: Carvedilol TAB* 6.25 MG PO SCH (10:21)
[2019-07-26] MEDS: Docusate CAP* 100 MG PO SCH (10:21)
[2019-07-26] MEDS: Digoxin TAB* 0.125 MG PO SCH (10:21)
[2019-07-26] MEDS: IVABRADINE 5 MG PO SCH (10:21)
[2019-07-26 11:23] VITALS: BP 106/49
--- NOTE | 2019-07-26 21:28 | DS ---
CC: Dr. Kacie Olvera * DISCHARGE SUMMARY: DATE OF ADMISSION: 07/24/19 DATE OF DISCHARGE: 07/26/19 PRIMARY CARE PROVIDER: Dr. Kacie Olvera in [facility], her fax number, there are 2 fax numbers, , secondary fax is [phone]. DISPOSITION ON DISCHARGE: Home in [facility]. CONDITION ON DISCHARGE: Stable. PRIMARY DIAGNOSES: Include: 1. Syncope. 2. L1 and L4 compression fracture. SECONDARY DIAGNOSES: Include: 1. Ventricular tachycardia. 2. Nonischemic cardiomyopathy. 3. Atrial fibrillation. 4. Type 2 diabetes, hemoglobin A1c is 6.7%. 5. Hyperlipidemia. MEDICATIONS ON DISCHARGE: Include: 1. Lasix 40 mg twice daily. 2. Coreg 12.5 mg twice daily. 3. Eliquis 2.5 mg twice daily. 4. Ivabradine 5 mg twice daily. 5. Rosuvastatin 20 mg in the evening. 6. Potassium chloride 20 mEq twice daily. 7. Metformin 500 mg daily. 8. Multivitamin 1 tab with meals. 9. Levothyroxine 75 mcg daily. 10. Vascepa 2 g twice daily. 11. Docusate 100 mg daily with meals. 12. Digoxin 125 mcg daily. 13. Citalopram 20 mg daily. 14. Acetaminophen 970 mg three times a day. PERTINENT IMAGING: CT lumbar spine is acute, subacute compression fracture of the superior endplates of L1 and L4 vertebral bodies with mild retropulsion of the fracture fragments into the anterior spinal canal, severe degenerative disk disease, and facet arthropathy with changes most prominent at L3-L4 and L4-L5. Lumbar and thoracic spine x-rays taken while wearing TLSO brace, mild to moderate compression fracture at L1 and L4 vertebral bodies, unchanged. HISTORY OF PRESENT ILLNESS AND HOSPITAL COURSE: This is an 84-year-old female with a past medical history as outlined in the history of present illness on the day of admission. As best as we could ascertain from family and patient, he does have dementia including what appeared to be a nonischemic cardiomyopathy with recent improvement in her LVEF; atrial fibrillation, on Eliquis; hypertension; and dementia, was visiting locally where she suffered a fall. Her son did not think that she had lost consciousness; however, interrogation of her ICD indicated that she did have an episode of the VFib at the time that she had fallen. Fall resulted in fractures of L1 and L4 as indicated above. We communicated with Neurosurgery at [place] who indicated placing the patient in a TLSO brace. Repeat films indicated stability. We again communicated with [facility] who had indicated travel in a car would not be discouraged, although staying here and treatment here would be ideal. The patient's family preferred to bring the patient home to her doctors including her software manager for further management. They declined medical management for what we discovered to be her known ventricular fibrillation occurring multiple events on the last month as well as at the time leading to her presentation. They do have a followup cardiology appointment tomorrow with her software manager in [place], [place]. We additionally discussed how to obtain images from [facility] in order to bring and have followup with Neurosurgery locally at their discretion. At the time of discharge, the patient was neurovascularly intact. She had no apparent degradation in neurological function. She was fitted with a TLSO brace to minimize a bit of her bending and twisting with good success. Family feels comfortable caring for the patient outside of hospital. There were no complications during the course of the hospital stay. At followup, please; 1. Ensure patient follows with Cardiology, which is scheduled for tomorrow for the management of ventricular fibrillation, which may require additional medication adjustment. 2. Ensure patient follows with Neurosurgery for followup of known new L1 and L4 fractures. 3. We would query how patient is doing caring for herself at home with her . 4. No other specific labs or vitals that need followup. I did advise son who will drive with the patient home tonight that if the patient experience any changes in her neurological function including numbness, weakness, paralysis in the lower extremities and/or chest pain, shortness of breath, nausea, vomiting, lightheadedness, loss of consciousness or near loss of consciousness, bleeding from any source, or inability to obtain or tolerate medications, he should identify local healthcare resources and proceed to the most proximal emergency room; he acknowledged understanding. TIME SPENT: Greater than 60 minutes was spent on discharge of this patient, greater than half was spent [id number] with the patient. [id number]/[facility] #: [id number] [facility]
== END 2019-07-26 14:35 | disposition home or self-care (01) ==
LOC: ED 15:25 → MEDTELE 21:20
PROVIDERS: ADMIT Internal Medicine; ATTEND Internal Medicine
DX: R55 Syncope and collapse (principal); S32.019A Unspecified fracture of first lumbar vertebra, initial encounter for closed fracture; S32.049A Unspecified fracture of fourth lumbar vertebra, initial encounter for closed fracture; W19.XXXA Unspecified fall, initial encounter; Y92.9 Unspecified place or not applicable; I47.2 Ventricular tachycardia; I42.8 Other cardiomyopathies; I10 Essential (primary) hypertension; I48.91 Unspecified atrial fibrillation; E11.9 Type 2 diabetes mellitus without complications; E87.2 Acidosis; E78.5 Hyperlipidemia, unspecified; R94.31 Abnormal electrocardiogram [ECG] [EKG]; Z79.899 Other long term (current) drug therapy; Z79.01 Long term (current) use of anticoagulants; F03.90 Unspecified dementia, unspecified severity, without behavioral disturbance, psychotic disturbance, mood disturbance, and anxiety
CPT/HCPCS: 36415; 72070; 72100; 72131; 80048; 80053; 80061; 80162; 81003; 81015; 82728; 83036; 83540; 83550; 83605; 83735; 83880; 84443; 84484; 85025; 85610; 87040; 87086; 93005; 96365; 96366; 99285; A9270-GY; G0378; J3475